=== PATIENT | female | born 1940 | race African-American/Black ===

== ENCOUNTER 2022-07-13 09:02 | Emergency (ER) | payer OTHER ==
--- OUTSIDE RECORDS SUMMARY | 2022-07-13 09:05 | XMS REPORT | Continuity of Care Document ---
:1940 Author Organization [facility] t Address [address] [place] [address] Care Team Providers Name Role Phone Boby RUIZ, Natalia Marcos Primary Care Physician [phone] Mustapha Last MD Attending Clinician MUSTAPHA LAST Attending Clinician Unavailable MUSTAPHA LAST Attending Clinician Unavailable Doctor Unassigned, [place] Attending Clinician Unavailable ADRIANA BENNETT Attending Clinician Unavailable Olga-Mbayo_A_AH Attending Clinician Unavailable Olga-Mbayo_A_AH Admitting Clinician Unavailable Payers Payer Name Policy Type Policy Number Effective Date Expiration Date [place] ballester[place] [facility] [id number] 2021 PLUS CLASSIC/VALUE 00:00:00 [employer] [place] - [id number] 2019 [place] 00:00:00 (MEDICARE REPLACEMENT/ADVANT AGE - HMO) Problems Condition Condition Condition Status Onset Resolution Last Treating Co mments Source Name Details Category Date Date Treatment Clinician Date No known No known Disease Unive rs active active ity of problems problems [facility] Allergies, Adverse Reactions, Alerts Allergy Allergy Status Severity Reaction(s) Onset Inactive Treating Comm ents Source Name Type Date Date Clinician NO KNOWN Drug Active Univers ALLERGIE Class ity of S [facility] Social History Social Habit Start Date Stop Date Quantity Comments Source Exposure to Not sure University SARS-CoV-2 [facility] (event) [place] Tobacco use and 2021-07-12 2021-07-12 Smokeless tobacco Un iversity of exposure 00:00:00 00:00:00 non-user [facility] Sex Assigned At [birth year] Universit y of 00:00:00 00:00:00 [facility] Smoking Status Start Date Stop Date Source Tobacco smoking consumption [facility] unknown Branch Medications Ordered Filled Start Stop Current Ordering Indication Dosage Frequency Signature Comments Components Source Medication Medication Date Date Medication? Clinician (SIG) Name Name carbleoniepa-l 2021-06 Yes [id number] 1{tbl} Take 1 Univers evodopa 2-12 tablet by ity of 25-100 mg 00:00[place] 00 the [place] morning Branch and 1 tablet at noon and 1 tablet in the evening. Take medicine 30 mins before or after meals. CARBIDOPA-L Yes [id number] 1{tbl} TAKE 1 Univers EVODOPA 7-05 TABLET BY ity of 25-100 mg 00:00: MOUTH 3 [place] tablet 00 (THREE) Medical TIMES Branch DAILY. TAKE MEDICINE 30 MINS BEFORE OR AFTER MEALS. CARBIDOPA-L 2021- No [id number] 1{tbl} TAKE 1 Univers EVODOPA 7-05 12-12 TABLET BY ity of 25-100 mg 00:00: 00:00 [place] 3 [place] :00 (THREE) Medical TIMES Branch DAILY. TAKE MEDICINE 30 MINS BEFORE OR AFTER MEALS. CARBIDOPA-L Yes [id number] 1{tbl} TAKE 1 Univers EVODOPA 3-28 TABLET BY ity of 25-100 mg 00:00: MOUTH 3 [place] tablet 00 (THREE) Medical TIMES Branch DAILY. TAKE MEDICINE 30 MINS BEFORE OR AFTER MEALS. CARBIDOPA-L 2021-2021- No [id number] 1{tbl} TAKE 1 Univers EVODOPA 3-28 07-05 TABLET BY ity of 25-100 mg 00:00: 00:00 [place]TH 3 [place] tablet [place] :00 (THREE) Medical TIMES Branch DAILY. TAKE MEDICINE 30 MINS BEFORE OR AFTER MEALS. carbidopa-l Yes [id number] 1{tbl} Take 1 Univers evodopa 1-25 tablet by ity of 25-100 mg 00:00: mouth 3 [place] tablet 00 (three) Medical times Branch daily. Take medicine 30 mins before or after meals. carbidopa-l 2021-2021- No [id number] 1{tbl} Take 1 Univers evodopa 1-25 03-28 tablet by ity of 25-100 mg 00:00: 00:[place] 3 [place] :00 (three) Medical times Branch daily. Take medicine 30 mins before or after meals. furosemide 0 Yes Univers 20 mg 1-18 ity of tablet 00:00: [address] Branch furosemide 2021-0 Yes Univers 20 mg 1-18 ity of tablet 00:00: [address] Branch furosemide 0 Yes Univers 20 mg 1-18 ity of tablet 00:00: [address] Branch furosemide 0 Yes Univers 20 mg 1-18 ity of tablet 00:00: [address] Branch lisinopriL 2020-06 Yes Univers 20 mg 1-24 ity of tablet 00:00: [address] lisinopriL 2020-06 Yes Univers 20 mg 1-24 ity of tablet 00:00: [address] lisinopriL 2020-06 Yes Univers 20 mg 1-24 ity of tablet 00:00: [address] Branch lisinopriL 2020-06 Yes Univers 20 mg 1-24 ity of tablet 00:00: [address] Branch MYRBETRIQ 2020-06 Yes Univers 25 mg 1-10 ity of tablet 00:00: [address] Branch MYRBETRIQ 2020-06 Yes Univers 25 mg 1-10 ity of tablet 00:00: [address] MYRBETRIQ 2020-06 Yes Univers 25 mg 1-10 ity of tablet 00:00: [address] Branch MYRBETRIQ 2020-06 Yes Univers 25 mg 1-10 ity of tablet 00:00: [address] pravastatin 2020-06 Yes Univer s 20 mg 0-15 ity of tablet 00:00: [address] Branch pravastatin 2020-06 Yes Univer s 20 mg 0-15 ity of tablet 00:00: [address] pravastatin 2020-06 Yes Univer s 20 mg 0-15 ity of tablet 00:00: [address] pravastatin 2020-06 Yes Univer s 20 mg 0-15 ity of tablet 00:00: [address] levothyroxi 2020-06 Yes Univer s ne 88 mcg 0-11 ity of tablet 00:00: [address] Branch levothyroxi 2020-06 Yes Univer s ne 88 mcg 0-11 ity of tablet 00:00: [place] [facility] levothyroxi 2020-06 Yes Univer s ne 88 mcg 0-11 ity of tablet 00:00: [place] [facility] Branch levothyroxi 2020-06 Yes Univer s ne 88 mcg 0-11 ity of tablet 00:00: [address] Vital Signs Vital Name Observation Time Observation Value Comments Source Systolic blood 2021-07-12 20:41:00 111 mm[Hg] Univer sity [facility] Diastolic blood 2021-07-12 20:41:00 74 mm[Hg] Unive rsity [facility] Heart rate 2021-07-12 20:41:00 85 /min [facility] Body height 2021-07-12 20:41:00 180.3 cm [facility] Body weight 2021-07-12 20:41:00 69.4 kg [facility] BMI 2021-07-12 20:41:00 21.34 kg/m2 [facility] Oxygen saturation 2021-07-12 20:41:00 98 /min [facility] in Arterial blood Medical Br anch by Pulse oximetry Procedures This patient has no known procedures. Encounters Start End Encounter Admission Attending Care Care Encounter Source Date/Time Date/Time Type Type Clinicians Facility Department ID 2022-05-29 2022-05-[address] [facility] [id number] Univers 00:00:00 00:00:00 [facility] [id number] ity of [place] [id number] Merlin as ROJELIO?BLEA [id number] [address] MEDICAL OFFICE BUILDING 2021-12-19 2021-12-19 [facility] [id number] Univers 00:00:00 00:00:00 [facility] [id number] ity of [place] [id number] Merlin as ROJELIO?BLEA [id number] [address] MEDICAL OFFICE BUILDING 2021-09-11 2021-09-11 Refill Shala [facility] [id number] Univers 00:00:00 00:00:00 [facility] [id number] [facility] [id number] Merlin as ROJELIO?BLEA [id number] [address] OFFICE BUILDING 2021-07-12 2021-07-12 [facility] [id number] Univers 16:00:00 17:10:50 Visit [facility] [id number] ity of [place] [id number] Merlin as ROJELIO?BLEA [id number] [address] OFFICE [facility] 2021-07-12 2021-07-12 Outpatient Eve ESPINOSAEMUSTAPHA [facility] [id number] Univers 16:00:00 17:10:50 SHALA MUSTAPHA [facility] 2021-07-12 2021-07-12 Outpatient MUSTAPHA CHANG [facility] [id number] Univers 16:00:00 16:00:00 MUSTAPHA LAST [facility] 2021-07-11 2021-07-11 Telephone [facility] [id number] Univers 00:00:00 00:00:00 [facility] [id number] ity of [place] [id number] Merlin as ROJELIO?BLEA [id number] [address] OFFICE [facility] 2021-07-07 2021-07-07 [facility] [id number] Univers 11:21:19 23:59:00 Encounter [facility] [id number] ity of [id number] [id number] Id beltranpiotr ZAK 805 [facility] 2021-07-07 2021-07-07 Outpatient Eve ESPINOSAEMUSTAPHA [facility] [id number] Univers 11:20:12 11:20:12 MUSTAPHA LAST [facility] 2021-07-07 2021-07-07 [facility] [id number] Univers 11:20:12 11:20:12 Encounter Mustapha [facility] [id number] it[id number] [id number] Id janet CR[place] [address] [place] [address] 2021-07-07 2021-07-07 [facility] [id number] Univers 11:00:00 11:19:00 Encounter Mustapha [facility] [id number] [id number] [id number] Id beltranpiotr CRESPO [address] [place] [address] 2021-06-29 2021-06-29 Outpatient MUSTAPHA CHANG [facility] [id number] Univers 00:00:00 00:00:00 MUSTAPHA LAST [facility] 2021-06-22 2021-06-22 Outpatient MUSTAPHA CHANG [facility] [id number] Univers 00:00:00 00:00:00 MUSTAPHA LAST [facility] 2021-06-22 2021-06-22 Outpatient MUSTAPHA CHANG [facility] [id number] Univers 00:00:00 00:00:00 MUSTAPHA LAST [facility] 2021-05-24 2021-05-24 Office Shala [facility] [id number] Univers 10:00:00 11:00:49 Visit Mustapha [id number] [id number] Merlin as ROJELIO?BLEA [id number] Id beltranpiotr CIPRIANO [address] [place] MEDICAL OFFICE BUILDING 2021-05-24 2021-05-24 Outpatient MUSTAPHA CHANG [facility] [id number] Univers 10:00:00 11:00:49 MUSTAPHA LAST [facility] 2021-05-24 2021-05-24 Outpatient MUSTAPHA CHANG [facility] [id number] Univers 10:00:00 11:00:49 MUSTAPHA LASTy [facility] 2021-05-24 2021-05-24 Orders Doctor MINGO [id number] Univers 00:00:00 00:00:00 Only Unassigned, [place] [id number] ity of [place] [facility] [id number] Merlin as [id number] [address] 2020-09-03 2020-09-03 Outpatient Eve BENNETT [facility] [id number] Univers 16:00:00 16:00:00 [facility] 2019-08-06 Outpatient Olga-Mbayo VFP VFP [id number] [facility] 07:15:00 07:15:00 _A_AH [id number] Family Practic e 2019-08-06 2019-08-06 Outpatient Olga-Mbayo VFP VFP [id number] [facility] 07:15:00 07:15:00 _A_AH [id number] Family Practic e 2019-08-06 2019-08-06 Outpatient Olga-Mbayo VFP VFP [id number] [facility] 07:15:00 07:15:00 _A_AH [id number] Family Practic e 2019-08-06 2019-08-06 Outpatient Olga-Mbayo VFP VFP [id number] [facility] 07:15:00 07:15:00 _A_AH [id number] Family Practic e 2019-08-06 2019-08-06 Outpatient Olga-Mbayo VFP VFP [id number] [facility] 07:15:00 07:15:00 _A_AH [id number] Family Practic e Results This patient has no known results.
--- NOTE | 2022-07-13 10:01 | RAD REPORT ---
EXAM DESCRIPTION: RAD - Chest Single View - 07/13/2022 9:56 am CLINICAL HISTORY: SWELLING Chest pain. COMPARISON: Chest Single View dated 03/08/2016 FINDINGS: Portable technique limits examination quality. Mild interstitial pulmonary edema suspected. The heart is moderately enlarged. No displaced fractures . IMPRESSION: Mild CHF.
[2022-07-13 10:09] LABS: Hematocrit 23.7 % (36.0-45.0); Lymphocytes % 19.8 % (15.3-44.8); MCV 81.2 fL (80-100); MPV 8.4 fL (7.6-11.3); RBC Red Blood Cell Count 2.92 M/uL (3.86-4.86)
[2022-07-13 10:16] LABS: Protime INR 1.05
[2022-07-13 10:27] LABS: Magnesium 1.9 mg/dL (1.6-2.4); Potassium 3.3 mmol/L (3.5-5.1); Troponin High Sensitivity 18.2 pg/mL (<58.9)
[2022-07-13 11:12] LABS: Urine Blood Negative (Negative); Urine Glucose Negative (Negative); Urine Protein Trace (Negative); Urine pH 5.5 (5.0-7.0)
[2022-07-13 11:17] LABS: Urine Bacteria <20 /HPF (<20); Urine Mucus 1+ /HPF (None Seen); Urine RBC <5 /HPF (None Seen)
[2022-07-13] MEDS ORDERED: FUROSEMIDE 40 MG/4 ML VIAL ONE (11:18)
[2022-07-13] MEDS ORDERED: FUROSEMIDE 20 MG/ 2ML VIAL ONE (11:19)
[2022-07-13 11:29] LABS: Ferritin 5.2 ng/mL (8-388)
[2022-07-13 11:32] LABS: SARS-CoV-2 Antigen Rapid Res Negative (Negative)
[2022-07-13] MEDS ORDERED: POTASSIUM 25 MEQ EFFERV TAB ONE (12:04)
--- NOTE | 2022-07-13 12:24 | ER ---
Nurse's Notes [facility] Name: Annita Toth Age: 81 yrs Sex: Female : 1940 Arrival Date: 07/13/2022 Time: 09:03 Bed 15 Private MD: Diagnosis: Iron deficiency anemia, unspecified;Unspecified combined systolic (congestive) and diastolic (congestive) heart failure Presentation: 07/13 09:20 Chief complaint: Patient's son or daughter states: was sent by her doctor , she had iw labs drawn yesterday and she needs to be evaluated, is possibly losing blood, denies any blood in stool but pt has seemed more disoriented and fatigued , her Hgb was 7.0, Hct 22.4. Coronavirus screen: At this time, the client does not indicate any symptoms associated with coronavirus-19. Ebola Screen: Patient negative for fever greater than or equal to 101.5 degrees Fahrenheit, and additional compatible Ebola Virus Disease symptoms Patient denies exposure to infectious person. Patient denies travel to an Ebola-affected area in the 21 days before illness onset. No symptoms or risks identified at this time. Initial Sepsis Screen: Does the patient meet any 2 criteria? No. Patient's initial sepsis screen is negative. Does the patient have a suspected source of infection? No. Patient's initial sepsis screen is negative. Risk Assessment: Do you want to hurt yourself or someone else? Patient reports no desire to harm self or others. Onset of symptoms was July 13, 2022. 09:20 Method Of Arrival: Wheelchair iw 09:20 Acuity: DEWEY 3 iw Triage Assessment: 11:50 General: Appears in no apparent distress. comfortable, Behavior is calm, cooperative, kr3 appropriate for age. Pain: Denies pain. Historical: - Allergies: 09:23 Aspirin; iw 09:23 PENICILLINS; iw - Home Meds: 09:39 carbidopa-levodopa 25-100 mg Oral tab 1 tab 3 times per day [Active]; levothyroxine 50 iw mcg tab 1 tab once daily [Active]; pravastatin 20 mg oral tab 1 tab once daily [Active]; Vitamin D Oral 50,000 unit weekly [Active]; Vesicare 5 mg oral tab 1 tab once daily [Active]; - PMHx: 09:23 High Cholesterol; Hyperlipidemia; Hypertension; iw - Immunization history:: Adult Immunizations unknown. - Social history:: Smoking status: . Screenin:13 [facility] ED Fall Risk Assessment (Adult) History of falling in the last 3 months, kr3 including since admission No falls in past 3 months (0 pts) Confusion or Disorientation No (0 pts) Intoxicated or Sedated No (0 pts) Impaired Gait No (0 pts) Mobility Assist Device Used No (0 pt) Altered Elimination No (0 pt) Score/Fall Risk Level 0 - 2 = Low Risk. Abuse screen: Denies threats or abuse. Nutritional screening: No deficits noted. Tuberculosis screening: No symptoms or risk factors identified. Assessment: 10:45 Reassessment: Patient appears in no apparent distress at this time. assisted patient to kr3 the bed side toilet. 11:34 Reassessment: Patient appears in no apparent distress at this time. Patient and/or kr3 family updated on plan of care and expected duration. Pain level reassessed. Patient is alert, oriented x 3, equal unlabored respirations, skin warm/dry/pink. Vital Signs: 09:20 BP 165 / 86; Pulse 87; Resp 16; Temp 99.3; Pulse Ox 100% on R/A; iw 10:45 BP 188 / 97; Pulse 94; Resp 18; Pulse Ox 96% on R/A; kr3 12:23 BP 131 / 89; Pulse 95; Resp 16; Pulse Ox 97% on R/A; kr3 ED Course: 09:03 Patient arrived in ED. am2 09:16 Rogers Julian PA is PHCP. cp 09:16 Scott Lofton MD is Attending Physician. cp 09:23 Triage completed. iw 09:24 Arm band placed on. iw 09:40 Bed in low position. Call light in reach. Side rails up X 1. kr3 09:48 Tamra Frederick, WHITNEY is Primary Nurse. kr3 09:58 XRAY Chest (1 view) In Process Unspecified. EDMS 11:11 LAB Add On Sent. kr3 11:13 SARS RAPID Sent. bc6 11:13 Ferritin Sent. bc6 11:13 TIBC Sent. bc6 12:50 IV discontinued, intact, bleeding controlled, No redness/swelling at site. Pressure kr3 dressing applied. 13:16 No provider procedures requiring assistance completed. kr3 Administered Medications: 11:27 Drug: Lasix (furosemide) 60 mg Route: IVP; Site: right antecubital; kr3 13:19 Follow up: Response: No adverse reaction kr3 12:20 Drug: Potassium Effervescent Tablet 50 mEq Route: PO; kr3 13:19 Follow up: Response: No adverse reaction kr3 Medication: 13:18 VIS not applicable for this client. kr3 Outcome: 12:23 Discharge ordered by . amanda 13:00 Patient left the ED. kr3 13:17 Discharged to home via wheelchair. kr3 13:17 Condition: stable 13:17 Discharge instructions given to patient, Instructed on discharge instructions, follow up and referral plans. medication usage, Demonstrated understanding of instructions, follow-up care, medications. Signatures: Dispatcher [employer] EDMS Jeannine Richards RN RN iw Rogers Julian PA PA cp Moreno, Amanda am2 Tamra Frederick RN RN kr3 Juanis Goyal 6 Corrections: (The following items were deleted from the chart) 09:23 09:20 Chief complaint: Patient's son or daughter states: was sent by her doctor , she iw had labs drawn yesterday and she needs to be evaluated, is possibly losing blood, denies any blood in stool but pt has seemed more disoriented and fatigued iw 09:24 09:20 Chief complaint: Patient's son or daughter states: was sent by her doctor , she iw had labs drawn yesterday and she needs to be evaluated, is possibly losing blood, denies any blood in stool but pt has seemed more disoriented and fatigued iw 11:36 11:35 Reassessment: Patient appears in no apparent distress at this time. kr3 kr3
--- NOTE | 2022-07-13 12:24 | EDPHYS ---
Physician Documentation [facility] Name: Annita Toth Age: 81 yrs Sex: Female : 1940 Arrival Date: 07/13/2022 Time: 09:03 Bed 15 Private MD: ED Physician Scott Lofton HPI: 07/13 09:40 This 81 yrs old Black Female presents to ER via Wheelchair with complaints of Abnormal cp Labs. 09:40 Daughter reports patient having routine blood work drawn by office of DR Landis and cp results showed low hemoglobin. Historical: - Allergies: 09:23 Aspirin; iw 09:23 PENICILLINS; iw - Home Meds: 09:39 carbidopa-levodopa 25-100 mg Oral tab 1 tab 3 times per day [Active]; levothyroxine 50 iw mcg tab 1 tab once daily [Active]; pravastatin 20 mg oral tab 1 tab once daily [Active]; Vitamin D Oral 50,000 unit weekly [Active]; Vesicare 5 mg oral tab 1 tab once daily [Active]; - PMHx: 09:23 High Cholesterol; Hyperlipidemia; Hypertension; iw - Immunization history:: Adult Immunizations unknown. - Social history:: Smoking status: . ROS: 09:45 Constitutional: Positive for fatigue, Negative for body aches, chills, fever, poor PO cp intake. 09:45 Eyes: Negative for injury, pain, redness, and discharge. cp 09:45 Cardiovascular: Positive for edema, Negative for chest pain, palpitations. 09:45 Abdomen/GI: Negative for black/tarry stool, rectal bleeding. 09:45 ENT: Negative for drainage from ear(s), ear pain, sore throat, difficulty swallowing, cp difficulty handling secretions. 09:45 Respiratory: Negative for cough, shortness of breath, wheezing. 09:45 : Negative for urinary symptoms. cp 09:45 Neuro: Negative for altered mental status, dizziness, headache, syncope, weakness. 09:45 All other systems are negative. Exam: 09:50 Constitutional: The patient appears in no acute distress, alert, awake, cp non-diaphoretic, non-toxic, well developed, well nourished. 09:50 Head/Face: Normocephalic, atraumatic. cp 09:50 Eyes: Periorbital structures: appear normal, Conjunctiva: normal, no exudate, no injection, Sclera: no appreciated abnormality, Lids and lashes: appear normal, bilaterally. 09:50 ENT: External ear(s): are unremarkable, Nose: is normal, Mouth: Lips: moist, Oral mucosa: moist, Posterior pharynx: is normal, airway is patent, no erythema, no exudate. 09:50 Chest/axilla: Inspection: normal. 09:50 Cardiovascular: Rate: normal, Rhythm: regular, Edema: ankle edema, that is moderate, JVD: is not appreciated. 09:50 Respiratory: the patient does not display signs of respiratory distress, Respirations: normal, no use of accessory muscles, no retractions, labored breathing, is not present, Breath sounds: bronchial sounds, that are mild, are heard diffusely, stridor, is not appreciated, wheezing: is not appreciated. 09:50 Abdomen/GI: Inspection: abdomen appears normal, Palpation: abdomen is soft and non-tender, in all quadrants. 09:50 Neuro: Orientation: to person, place, situation, Mentation: able to follow commands, slow to respond, Motor: moves all fours, strength is normal, Sensation: is normal. 10:10 ECG was reviewed by the Attending Physician. cp Vital Signs: 09:20 BP 165 / 86; Pulse 87; Resp 16; Temp 99.3; Pulse Ox 100% on R/A; iw 10:45 BP 188 / 97; Pulse 94; Resp 18; Pulse Ox 96% on R/A; kr3 12:23 BP 131 / 89; Pulse 95; Resp 16; Pulse Ox 97% on R/A; kr3 MDM: 09:29 Patient medically screened. cp 11:13 ED course: Spoke with SEAM CLOSER at office of DR Landis who reports H/H of 11.2/34 on 04/06/21. cp Patient is prescribed Lasix 20 mg daily. 12:22 Data reviewed: vital signs, nurses notes, lab test result(s), EKG, radiologic studies, cp plain films. 12:22 Differential Diagnosis chronic anemia, acute anemia, GI bleed, CHF exacerbation, cp cardiac arrythmia. Consideration of Admission/Observation Escalation of care including admission/observation considered. Management of patient was discussed with the following: Primary Care Provider: SEAM CLOSER at office of DR Landis. I considered the following discharge prescriptions or medication management in the emergency department Medications were administered in the Emergency Department. See MAR. Independent interpretation of the following test(s) in the Emergency Department EKG: See my EKG interpretation above X-Ray: My interpretation is chest xray negative for focal pneumonia. Test considered but Not performed: CT: abdomen/pelvis. Historians other than the Patient: Daughter/Son: daughter provides HPI. Care significantly affected by the following chronic conditions: Hypertension, Congestive Heart Failure, chronic anemia. Counseling: I had a detailed discussion with the patient and/or guardian regarding: the historical points, exam findings, and any diagnostic results supporting the discharge/admit diagnosis, the presence of at least one elevated blood pressure reading (>120/80) during this emergency department visit, lab results, radiology results, the need for outpatient follow up, for definitive care, an registered nurses, to return to the emergency department if symptoms worsen or persist or if there are any questions or concerns that arise at home. 07/13 09:34 Order name: Basic Metabolic Panel; Complete Time: 10:31 07/13 10:31 Interpretation: Normal except: K 3.3; GFR 59; CA 8.0. 07/13 09:34 Order name: CBC with Diff; Complete Time: 10:17 07/13 10:18 Interpretation: Normal except: RBC 2.92; HGB 7.5; HCT 23.7; MCH 25.7; MCHC 31.6; RDW cp 17.7. 07/13 09:34 Order name: Magnesium; Complete Time: 10:31 cp 07/13 09:34 Order name: NT PRO-BNP; Complete Time: 10:31 07/13 10:31 Interpretation: NT PRO-BNP 915; Reviewed. 07/13 09:34 Order name: PT-INR; Complete Time: 10:17 cp 07/13 09:34 Order name: Troponin HS; Complete Time: 10:31 cp 07/13 10:31 Interpretation: Troponin HS 18.2; Reviewed. 07/13 09:34 Order name: XRAY Chest (1 view); Complete Time: 10:04 07/13 10:04 Interpretation: Report review. 07/13 09:34 Order name: Ptt, Activated; Complete Time: 10:17 07/13 09:38 Order name: Urine Microscopic Only; Complete Time: 11:39 cp 07/13 10:51 Order name: TIBC; Complete Time: 11:39 cp 07/13 11:39 Interpretation: Abnormal: IRON 20.0; %SAT 6.3. cp 07/13 10:51 Order name: Ferritin; Complete Time: 11:39 cp 07/13 11:39 Interpretation: Abnormal: FRANCIS 5.2. cp 07/13 10:51 Order name: LAB Add On cp 07/13 11:04 Order name: SARS RAPID; Complete Time: 11:39 kj1 07/13 11:12 Order name: Urine Dipstick-Ancillary; Complete Time: 11:39 EDMS 07/13 09:34 Order name: EKG; Complete Time: 09:34 cp 07/13 09:34 Order name: Cardiac monitoring; Complete Time: 10:12 cp 07/13 09:34 Order name: EKG - Nurse/Tech; Complete Time: 10:12 cp 07/13 09:34 Order name: IV Saline Lock; Complete Time: 10:04 cp 07/13 09:34 Order name: Labs collected and sent; Complete Time: 10:04 cp 07/13 09:34 Order name: O2 Per Protocol; Complete Time: 10:04 cp 07/13 09:34 Order name: O2 Sat Monitoring; Complete Time: 10:04 cp 07/13 09:38 Order name: Urine Dipstick-Ancillary (obtain specimen); Complete Time: 11:33 cp 07/13 12:15 Order name: Blood Pressure Recheck; Complete Time: 12:32 cp EC:10 Rate is 80 beats/min. Rhythm is regular. [place] interval is normal. QRS interval is normal. cp QT interval is normal. T waves are Inverted in lead III. Interpreted by me. Reviewed by me. Administered Medications: 11:27 Drug: Lasix (furosemide) 60 mg Route: IVP; Site: right antecubital; kr3 13:19 Follow up: Response: No adverse reaction kr3 12:20 Drug: Potassium Effervescent Tablet 50 mEq Route: PO; kr3 13:19 Follow up: Response: No adverse reaction kr3 Disposition: 13:31 I reviewed the patient's care provided by Advanced Practice Provider \T\ agree w/ the jr11 diagnosis \T\ care plan. I personally saw the pt \T\ performed a substantive portion of the visit, incldng all aspects of the (History/Exam/Medical Decision Making). Disposition Summary: 07/13/22 12:23 Discharge Ordered Location: Home cp Problem: chronic cp Symptoms: have improved cp Condition: Stable cp Diagnosis - Iron deficiency anemia, unspecified cp - Unspecified combined systolic (congestive) and diastolic (congestive) heart failure cp Followup: cp - With: Private Physician - When: 2 - 3 days - Reason: Recheck today's complaints Discharge Instructions: - Discharge Summary Sheet cp - Iron Deficiency Anemia, Adult cp - Anemia cp - Heart Failure, Diagnosis cp - Iron-Rich Diet cp Forms: - Medication Reconciliation Form cp - Thank You Letter cp - Antibiotic Education cp - Prescription Opioid Use cp Prescriptions: - Ferrous Sulfate 325 mg (65 mg Iron) Oral Tablet - take 1 tablet by ORAL route every 12 hours; 60 tablet; Refills: 0, Product cp Selection Permitted - Lasix 20 mg Oral Tablet - take 1 tablet by ORAL route once daily; 20 tablet; Refills: 0, Product cp Selection Permitted Signatures: Dispatcher [employer] EDJeannine Lucas RN RN iw Rogers Julian PA PA cp Scott Lofton MD MD [email or web address] Tamra Frederick RN RN kr3 Corrections: (The following items were deleted from the chart) 07/14 09:38 07/13 09:40 This 81 yrs old Black Female presents to ER via Wheelchair with complaints cp of Rectal Bleeding. cp 07/14 09:40 07/13 09:45 Constitutional: Negative for body aches, chills, fever, poor PO intake, cp cp 07/14 09:40 07/13 09:45 Neuro: Positive for weakness, Negative for altered mental status, cp dizziness, headache, syncope, cp
[2022-07-13 13:58] VITALS: BP 131/89; O2SAT 97
--- NOTE | 2022-07-14 13:18 | EKG ---
Test Date: 2022-07-13 Test Time: 10:04:25 Hat Liner: ANGIE MEASUREMENT RESULTS: Intervals: Rate: 80 DC: 160 QRSD: 98 QT: 384 QTc: 442 [place]: P: 31 DC: 160 QRS: -8 T: 4 INTERPRETIVE STATEMENTS: Normal sinus rhythm Nonspecific T wave abnormality Abnormal ECG Compared to ECG 03/08/2016 17:14:00 No significant changes Electronically Signed On 07-14-22 13:15:25 SPECIMEN PREPARATION ASSISTANT by Josue Gross
== END 2022-07-13 13:00 | disposition home or self-care (01) ==
LOC: ER 09:02
DX: D50.9 Iron deficiency anemia, unspecified (principal); I50.40 Unspecified combined systolic (congestive) and diastolic (congestive) heart failure; E78.00 Pure hypercholesterolemia, unspecified; I10 Essential (primary) hypertension; Z88.0 Allergy status to penicillin; Z88.6 Allergy status to analgesic agent; Z20.822 Contact with and (suspected) exposure to COVID-19
CPT/HCPCS: 93005; 85025; 80048; 36415; 83735; 85610; 85730; 84484; 82728; 83540; 83880; 84466; 71045; 96374; 99283; 87811; J1940 ×2; 81003; 81015